=== PATIENT | female | born 1960 ===

== ENCOUNTER 2017-05-18 17:37 | Emergency (ER) | payer BC, OTHER ==
[2017-05-18 17:37] VITALS: BMI 29.6
--- NOTE | 2017-05-18 19:19 | C.PDOC ---
History Of Present Illness 57 year old female with a Hx of HTN and HLD sent to ER by her PMD, Dr. Garcia , for a complaint of mid sternal chest pain since yesterday that she describes as "mild". Denies fever or other complaints. Time Seen by Provider: 05/18/17 18:57 Chief Complaint (Nursing): Chest Pain History Per: Patient History/Exam Limitations: no limitations Onset/Duration Of Symptoms: Hrs Current Symptoms Are (Timing): Still Present Quality: Other ("mild") Associated Symptoms: denies: Nausea, Dyspnea, Diaphoresis, Syncope Exacerbating Factors: None Alleviating Factors: None Recent travel outside of the [place]: No Past Medical History Reviewed: Historical Data, Nursing Documentation, Vital Signs Vital Signs: Last Vital Signs Temp 98 F 05/18/17 18:13 Pulse 58 L 05/18/17 18:13 Resp 18 05/18/17 18:13 BP 143/83 05/18/17 18:13 Pulse Ox 100 05/18/17 19:32 - Medical History PMH: Anxiety, Asthma, Bronchitis, Depression, HTN, Hypercholesterolemia, Hyperlipidemia - [facility] Procedures APPLICATION OF SPLINT (05/12/05) IMMOBILIZ/WOUND ATTN NEC (12/05/12) INJECT/INFUSE NEC (06/12/14) MAGNETIC RESONANCE IMAGING OF BRAIN AND BRAIN STEM (02/06/14) MAGNETIC RESONANCE IMAGING OF SPINAL CANAL (02/06/14) MRI OF OTHER AND UNSPECIFIED SITES (02/06/14) PSYCHIAT DRUG THERAP NEC (01/17/04) Family History: States: Unknown Family Hx - Social History Hx Tobacco Use: No Hx Alcohol Use: No (Former) Hx Substance Use: No - Immunization History Hx Tetanus Toxoid Vaccination: No Hx Influenza Vaccination: No Hx Pneumococcal Vaccination: No Review Of Systems Constitutional: Negative for: Fever, Chills Cardiovascular: Positive for: Chest Pain Respiratory: Negative for: Shortness of Breath Gastrointestinal: Negative for: Nausea, Vomiting Physical Exam - Physical Exam Appears: Non-toxic, No Acute Distress Skin: Normal Color, Warm, Dry Head: Atraumatic, Normacephalic Eye(s): bilateral: Normal Inspection Oral Mucosa: Moist Chest: Symmetrical, No Tenderness Cardiovascular: Rhythm Regular Respiratory: Normal Breath Sounds, No Rales, No Rhonchi, No Wheezing Gastrointestinal/Abdominal: Soft, No Tenderness Neurological/Psych: Oriented x3, Normal Speech, Other (No focal deficits) ED Course And Treatment - Laboratory Results Result Diagrams: 05/18/17 19:25 05/18/17 19:25 ECG: Interpreted By Me, Viewed By Me ECG Rhythm: Sinus Bradycardia ECG Interpretation: Normal Interpretation Of ECG: No ST/T wave changes. Rate From EC O2 Sat by Pulse Oximetry: 100 (Room air) Pulse Ox Interpretation: Normal Medical Decision Making Medical Decision Making: cp r/o acs - EKG, blood work, CXR, and urinalysis ordered. pt reassesed seen by dr larios. pt had w/u previously last week at another institution. advises can d/c home. outpt f/u Disposition - Disposition Referrals: Memo Hooker MD [Staff Provider] - Disposition: HOME/ ROUTINE Disposition Time: 20:19 Condition: STABLE Instructions: Chest Pain (ED) Forms: [facility] (Persian) - Clinical Impression Clinical Impression: Chest pain - Scribe Statement The provider has reviewed the documentation as recorded by the Scribe Fidel Vargas All medical record entries made by the Scribe were at my direction and personally dictated by me. I have reviewed the chart and agree that the record accurately reflects my personal performance of the history, physical exam, medical decision making, and the department course for this patient. I have also personally directed, reviewed, and agree with the discharge instructions and disposition.
[2017-05-18 19:28] LABS: BASO % 0.5 % (0.0-2.0); EOS # 0.1 K/uL (0.0-0.7); EOS % 1.2 % (0.0-4.0); HEMATOCRIT 36.5 % (34.0-47.0); LYMPH # 2.5 K/uL (1.0-4.3); LYMPH % 37.5 % (20.0-40.0); MEAN CELL VOLUME 89.8 fL (81.0-99.0); MEAN CORPUSCULAR HGB CONC 33.4 g/dL (33.0-37.0); MEAN PLATELET VOLUME 8.1 fL (7.2-11.7); MONO # 0.5 K/uL (0.0-0.8); MONO % 8.1 % (0.0-10.0); NRBC % 0.1 % (0.0-2.0); RED CELL DISTRIBUTION WIDTH 13.2 % (11.5-14.5); WHITE BLOOD COUNT 6.8 K/uL (4.8-10.8)
[2017-05-18 19:40] LABS: ALKALINE PHOSPHATASE 75 U/L (38-126); ALT/SGPT 42 U/L (9-52); AST/SGOT 32 U/L (14-36); BILIRUBIN,TOTAL 0.6 mg/dL (0.2-1.3); BLOOD UREA NITROGEN 13 mg/dL (7-17); CALCIUM 8.7 mg/dl (8.6-10.4); CARBON DIOXIDE 28 mmol/L (22-30); CHLORIDE 101 mmol/L (98-107); GFR AFRICAN-AMERICAN > 60; POTASSIUM 3.9 mmol/L (3.6-5.2); SODIUM 138 mmol/L (132-148); TOTAL PROTEIN 8.6 g/dL (6.3-8.3)
[2017-05-18 19:45] LABS: GLUCOSE,RANDOM 88 mg/dL (65-105)
[2017-05-18 20:30] VITALS: BP 153/76; PULSE 50; RESP 20; TEMP 97.6; O2SAT 97
--- NOTE | 2017-05-19 07:58 | RAD ---
PROCEDURE: CHEST RADIOGRAPH, 1 VIEW HISTORY: chest pain COMPARISON: 12/18/2013. FINDINGS: LUNGS: Frontal chest radiograph PLEURA: No pneumothorax or pleural fluid seen. CARDIOVASCULAR: Prominent cardiac silhouette again appreciated. No pulmonary vascular derangement once again. OSSEOUS STRUCTURES: No significant abnormalities. VISUALIZED UPPER ABDOMEN: Normal. OTHER FINDINGS: None. IMPRESSION: Stable prominent cardiac silhouette without pulmonary vascular derangement. No infiltrate bilaterally.
--- NOTE | 2017-05-20 10:38 | CARD ---
APPROVED REPORT EKG Measurement Heart [id number] <Conclusion> Sinus bradycardia Otherwise normal ECG
== END 2017-05-18 21:10 | disposition home or self-care (01) ==
LOC: C.ER 17:37
DX: R07.9 Chest pain, unspecified (principal)